=== PATIENT | female | born 1985 | race Hispanic/Latino ===

== ENCOUNTER 2025-01-13 21:08 | Emergency (ER) | payer OTHER, MEDICARE ==
[~2025-01-13] VITALS: Ht 162.6 cm; Wt 132.4 kg
[2025-01-13 21:30] VITALS: BP 142/77; PULSE 75; RESP 18; TEMP 98.8; O2SAT 98
--- NOTE | 2025-01-13 22:35 | HMCIMG ---
EXAM: CR Chest, 1 View. CLINICAL HISTORY: sob COMPARISON: None provided. FINDINGS: LUNGS: The lungs show no infiltrate or other acute finding. PLEURAL SPACES: No pleural effusion or pneumothorax. MEDIASTINUM: The cardiomediastinal silhouette is within normal limits. BONES: No aggressive appearing osseous lesion seen. IMPRESSION: No acute cardiopulmonary pathology is evident. /[place]
[2025-01-13 22:43] LABS: IMMATURE GRANULOCYTE ABSOLUTE 0.03 K/uL (0-1); NUCLEATED RED BLOOD CELLS 0.0 % (0.0-0.19); PLATELET COUNT (AUTO) 257 K/uL (130-400); RED BLOOD CELL COUNT(AUTO) 4.20 MIL/uL (4.00-5.50); RED CELL DISTRIBUTION WIDTH 13.7 % (11.0-15.5); WHITE BLOOD COUNT (AUTO) 8.2 K/uL (4.8-10.8)
[2025-01-13 23:01] LABS: CREATININE 0.7 mg/dL (0.5-1.0); GLOMERULAR FILTR. RATE CALC 114.0 mL/min (>90); GLUCOSE,RANDOM 117.0 mg/dL (70-105); SODIUM SERUM 136.0 mmol/L (136-145); UREA NITROGEN, BLOOD 10.0 mg/dL (7-18)
[2025-01-13 23:09] LABS: CREATINE KINASE, TOTAL 91.0 U/L (21-232)
--- NOTE | 2025-01-13 23:27 | ERN ---
General Chief Complaint: Lower Extremity Pain/Injury Stated Complaint: C/O SWELLING TO LOWER EXTREMITIES Time Seen by MD: 21:29 Time Seen by Midlevel: 21:29 Source: patient History of Present Illness Initial Comments The patient is a 39-year-old female with a past medical history of bipolar disorder, depression, and type 2 diabetes who presents to the emergency department for evaluation of alleged swelling to bilateral lower extremities and bilateral upper extremities.. Allergies: Coded Allergies: No Known Allergies (Unverified Allergy, Unknown, 01/13/25) Past Medical History Past Medical History: Bipolar, Depression, Diabetes-Type II Past Surgical History: Cholecystectomy, Unknown ROS Dictation CONSTITUTIONAL: Negative except for HPI HEAD/FACE: Negative except for HPI EENT: Negative except for HPI RESPIRATORY: Negative except for HPI GASTROINTESTINAL/ABDOMINAL: Negative except for HPI GENITOURINARY: Negative except for HPI MUSCULOSKELETAL: Negative except for HPI INTEGUMENTARY: Negative except for HPI NEUROLOGICAL/PSYCH: Negative except for HPI HEMATOLOGIC/LYMPHATIC: Negative except for HPI All Systems Negative, Except as noted above. 13 point review of systems assessed and all negative except for above. Physical Exam Physical Exam Dictation Vital Signs reviewed General Appearance: Alert, oriented x 3, no acute distress, well developed, nourished. Head and Face: non-traumatic. Eyes: PERRL, pink conjunctivas, eyelid no trauma, anterior chamber with arcus senilis. Ears: Pinnas intact and no signs of trauma or erythema ear canals clear and no discharge TM no erythema Nose: No discharge, no bleeding. Oropharynx: Mouth normal, tongue pink, pharynx clear,no erythema, tonsils no exudates, no abscesses noted, mucous membrane moist Neck: Supple, non-tender, no thyromegaly, no masses, no JVD, no bruits Breast:Deferred Chest:No tenderness, no crepitus, no paradoxical movement, no retractions Lungs:Clear, well-ventilated, symmetric, no rales, no wheezing, no rhonchi, no stridor, good breath sounds bilaterally Heart: Regular rate, regular rhythm, no murmur, no gallops Vascular: no peripheral edema, Abdomen: Soft, positive bowel sounds, nondistended, no guarding, nontender, no rebound, no masses no hepatomegaly, no splenomegaly, no Bo's sign, no hernias. Rectal: Deferred Genital: Deferred Neurological: Normal speech, motor function intact, sensory function intact Musculoskeletal: Neck nontender, full range of motion, back nontender, full range of motion, Extremities: nontender, full range of motion Skin: Color pink, dry, no turgor, no rash, no lacerations, no abrasions, no contusions. Lymphatic: Deferred Results Laboratory and Microbiology Lab and Micro Result Laboratory Tests Test 01/13/25 22:23 White Blood Count 8.2 K/uL (4.8-10.8) Red Blood Count 4.20 MIL/uL (4.00-5.50) Hemoglobin 12.6 g/dL (12.0-16.0) Hematocrit 39.8 % (36-48) Mean Corpuscular Volume 94.8 fL (79-99) Mean Corpuscular Hemoglobin 30.0 pg (27.0-33.0) Mean Corpuscular Hemoglobin Concent 31.7 g/dL (32.0-36.0) L Red Cell Distribution Width 13.7 % (11.0-15.5) Platelet Count 257 K/uL (130-400) Mean Platelet Volume 9.0 fL (7.5-10.5) Immature Granulocyte % (Auto) 0.4 % (0-1) Neutrophils (%) (Auto) 35.9 % (40.0-77.0) L Lymphocytes (%) (Auto) 52.3 % (21.0-51.0) H Monocytes (%) (Auto) 9.0 % (3.0-13.0) Eosinophils (%) (Auto) 1.8 % (0.0-8.0) Basophils (%) (Auto) 0.6 % (0.0-5.0) Neutrophils # (Auto) 3.0 K/uL (1.8-7.7) Lymphocytes # (Auto) 4.3 K/uL (1.0-4.8) Monocytes # (Auto) 0.7 K/uL (0.1-1.0) Eosinophils # (Auto) 0.15 K/uL (0.00-0.70) Basophils # (Auto) 0.05 K/uL (0.00-0.20) Absolute Immature Granulocyte (auto 0.03 K/uL (0-1) Nucleated Red Blood Cells 0.0 % (0.0-0.19) Sodium Level 136 mmol/L (136-145) Potassium Level 4.0 mmol/L (3.5-5.1) Chloride Level 103 mmol/L (101-111) Carbon Dioxide Level 27 mmol/L (21-32) Blood Urea Nitrogen 10 mg/dL (7-18) Creatinine 0.7 mg/dL (0.5-1.0) Glomerular Filtration Rate Calc 114 mL/min (>90) Random Glucose 117 mg/dL (70-105) H Total Calcium 8.2 mg/dL (8.5-10.1) L Total Creatine Kinase 91 U/L (21-232) Troponin I High Sensitivity 4.1 ng/L (4-50) B-Type Natriuretic Peptide 11 pg/mL (0-100) Serum Test, Qualitative NEGATIVE (NEGATIVE) Labs Reviewed?: Yes MDM MDM: The patient is a 39-year-old female with a past medical history of bipolar disorder, depression, and type 2 diabetes who presents to the emergency department for evaluation of alleged swelling to bilateral lower extremities and bilateral upper extremities.. On physical examination the patient is lying in bed in no acute distress. Vital signs are stable. Patient is afebrile and nontoxic appearing. O2 saturation is 100% on room air. Patient is not tachycardic. I do not appreciate any swelling to lower extremities or upper extremities. The patient is morbidly obese. Cardiac workup was initiated. CBC shows no evidence of anemia, thrombocytopenia, or leukocytosis. Chemistries are stable. BNP is normal. Troponin is negative. Chest x-ray shows no evidence of pulmonary edema. Negative Homans sign. I have a low clinical suspicion for DVT. Differential diagnosis: Fluid overload, electrolyte abnormality, dehydration There are no social concerns with this patient. Prescription drug management Prescriptions will include: None Medical management and examination interpretation discussions were had by me with other qualified healthcare professionals as indicated for the patient's care. ED Course Orders Procedure Category Date Status Time Cbc With Differential LAB 01/13/25 Complete 21:57 Basic Metabolic Panel LAB 01/13/25 Complete 21:57 B-Type Natriuretic LAB 01/13/25 Complete Peptide 21:57 Testing, LAB 01/13/25 Complete Serum Hcg 21:57 Chest 1vw RAD 01/13/25 Resulted 21:57 Cardiac Panel LAB 01/13/25 Complete 22:23 Vital Signs Date Time Temp Pulse Resp B/P (MAP) Pulse Ox O2 Delivery O2 Flow Rate FiO2 01/13/25 21:30 98.8 75 18 142/77 98 Room Air* 0 21 01/13/25 21:13 97.9 95 20 167/93 100 Room Air [facility] [address] [place] [address] IMAGING REPORT Signed PATIENT: EUSEBIO GÓMEZ MR#: [id number] : 1985 SEX: F AGE: 39 LOCATION: [facility] ORDER 00 STATUS: REG ER REPORT#: [id number] SERVICE 56 REASON: sob ORDERING PHYSICIAN: DALLIN MONTANO PAC PROCEDURE: CXR1VW - CHEST 1VW EXAM: CR Chest, 1 View. CLINICAL HISTORY: sob COMPARISON: None provided. FINDINGS: LUNGS: The lungs show no infiltrate or other acute finding. PLEURAL SPACES: No pleural effusion or pneumothorax. MEDIASTINUM: The cardiomediastinal silhouette is within normal limits. BONES: No aggressive appearing osseous lesion seen. IMPRESSION: No acute cardiopulmonary pathology is evident. /[place] DICTATED BY: NEETU GUERRA Jr., MD DATE: 01/13/252333 ELECTRONICALLY SIGNED BY: NEETU GUERRA Jr., MD DATE: 01/13/252333 DX & DISP Disposition: Discharge Departure Impression: Primary Impression: Symptom of leg swelling Additional Impression: Medical clearance for psychiatric admission Condition: Stable Additional Instructions: Your blood work today is unremarkable. Your CBC shows no signs of infection. There was no evidence of anemia. Your electrolytes are normal. Your kidney function is normal. Your cardiac enzymes are negative. Your chest x-ray shows no evidence of pulmonary edema I have reviewed the case, and I agree with, Diagnosis and Plan I performed the substantive portion of the visit. I have reviewed and personally made and approve the management plan that is documented in the note by myself or the [facility]. I acknowledge for responsibility for the patient's management plan. DALLIN MONTANO PAC Jan 13, 2025 23:27
--- NOTE | 2025-01-14 00:24 | NUR ---
REPORT HANDED OVER TO NELY BENSON @ [place]
--- NOTE | 2025-01-14 02:26 | NUR ---
DC FROM ER AT 2.06 ACCOMPANIED BY [facility] AND OWN TRANSPORT TRANSPORTED BACK TO [facility]
== END 2025-01-14 02:06 ==
LOC: EDH 21:08
DX: R22.43 Localized swelling, mass and lump, lower limb, bilateral (principal); E11.9 Type 2 diabetes mellitus without complications; F31.9 Bipolar disorder, unspecified; Z90.49 Acquired absence of other specified parts of digestive tract
CPT/HCPCS: 36415; 71045; 80048; 82550; 83880; 84484; 84703; 85025; 99284